=== PATIENT | female | born 1950 | race Caucasian/White ===

== ENCOUNTER → 2019-10-30 14:25 | Outpatient (CLI) | payer MEDICARE, OTHER, SELFPAY ==
--- NOTE | 2019-10-30 14:29 | DI.RAD.S_ITS ---
PROCEDURE: XR LUMBAR SPINE MIN 4V INDICATIONS: LBP with Right LE symptoms TECHNIQUE: 5 views of the lumbar spine were acquired. COMPARISON: None. FINDINGS: Bones: 5 nonrib-bearing vertebrae are present. There is normal bony alignment. No vertebral body compression fractures. Degenerative endplate changes throughout lumbar spine is seen. Bilateral facet arthrosis is also. No suspicious bony lesions. Soft tissues: Overlying bowel gas pattern is normal. No suspicious soft tissue calcifications. Oblique images: No pars defects. IMPRESSION: Degenerative disc disease and bilateral facet arthrosis throughout lumbar spine. No acute compression fracture or spondylolisthesis. No gross pars defect. Dictated by: William Forrest M.D. on 10/30/2019 at 16:15 Approved by: William Forrest M.D. on 10/30/2019 at 16:16
== END ==
PROVIDERS: PCP Physician Assistant; Referring Provider Physical Medicine & Rehabilitation; Visit Provider Physical Medicine & Rehabilitation
DX: M54.5 Low back pain (principal); M47.26 Other spondylosis with radiculopathy, lumbar region; M51.16 Intervertebral disc disorders with radiculopathy, lumbar region
CPT/HCPCS: 72110

== ENCOUNTER → 2019-11-23 12:34 | Outpatient (CLI) | payer MEDICARE, OTHER, SELFPAY ==
--- NOTE | 2019-11-23 12:36 | DI.MRI.S_ITS ---
PROCEDURE: MR LUMBAR SPINE WO CON INDICATIONS: Right L4 radiculopathy TECHNIQUE: Noncontrast sagittal T1 spin echo and T2 fast echo, sagittal STIR, axial T1 and T2 fast spin echo through the lumbar spine. In cases with scoliosis, additional coronal T2 fast spin echo may be performed. COMPARISON: [facility], CR, XR LUMBAR SPINE MIN 4V, 10/30/2019, 14:21. FINDINGS: Image quality: Excellent. Alignment and Curvature: There is there is trace retrolisthesis of L1 on L2. Bone Marrow: Marrow is of normal overall signal. Multilevel minimal reactive endplate changes are noted. No acute vertebral body compression fractures. Spinal Cord: Conus medullaris terminates at the L2-3 level. Visualized cord demonstrates normal signal and size. Paraspinous Soft Tissues: No paravertebral masses. Discs: Multilevel [id number] desiccation is present throughout the lumbar spine. L1-L2: Minimal to mild disc bulge without spinal stenosis or foraminal narrowing. L2-L3: Mild disc bulge without spinal stenosis. Minimal left foraminal narrowing. Minimal epidural lipomatosis. Facet and ligamentum flavum hypertrophy are present. L3-L4: Mild disc bulge without spinal stenosis. Minimal left foraminal narrowing with facet and ligamentum flavum hypertrophy. Minimal epidural lipomatosis. L4-L5: Mild disc bulge including a right lateral component. There is mild spinal stenosis. Moderate right and [id number]-[id number] left foraminal narrowing with facet and ligamentum flavum hypertrophy. L5-S1: Mild disc bulge without spinal stenosis. Minimal left foraminal narrowing with facet hypertrophy. IMPRESSION: 1. Multilevel disc bulges. 2. Mild spinal stenosis secondary to disc bulging contributing affective facet/ligamentum flavum arthropathy at L4-5. 3. Multilevel foraminal narrowing most notable at L4-5 secondary to facet arthropathy. Dictated by: Lucia Crisostomo M.D. on 11/23/2019 at 15:57 Approved by: Lucia Crisostomo M.D. on 11/23/2019 at 16:02
== END ==
PROVIDERS: PCP Physician Assistant; Referring Provider Physical Medicine & Rehabilitation; Visit Provider Physical Medicine & Rehabilitation
DX: M51.16 Intervertebral disc disorders with radiculopathy, lumbar region (principal); M51.17 Intervertebral disc disorders with radiculopathy, lumbosacral region; M47.26 Other spondylosis with radiculopathy, lumbar region; M48.061 Spinal stenosis, lumbar region without neurogenic claudication
CPT/HCPCS: 72148

== ENCOUNTER 2022-10-20 09:17 | Outpatient (CLI) | payer MEDICARE, OTHER, SELFPAY ==
[2022-10-20] VITALS (8 sets, daily range): BP systolic 114–145; BP diastolic 56–67; PULSE 60–70; RESP 17–20; O2SAT 96–100
--- NOTE | 2022-10-20 09:18 | DI.RAD.S_ITS ---
PROCEDURE: PAIN L INTERLAMINAR/CAUDAL INJ INDICATIONS: SPONDYLOSIS COMPARISON: None. FINDINGS: Fluoroscopic spot filming was performed to verify placement of spinal needles at the L4-5 level(s), as labeled on the films. Appropriate location(s) of the needle tip(s) was confirmed by injection of iodinated contrast. IMPRESSION: Intraprocedural fluoroscopy was provided for guidance and anatomical localization. Please see the procedure report for further details. Dictated by: Abdullahi Becker M.D. on 10/20/2022 at 16:16 Approved by: Abdullahi Becker M.D. on 10/20/2022 at 16:16
[2022-10-20] MEDS: MIDAZOLAM 2 MG/2 ML VIAL IV (11:12)
[2022-10-20] MEDS: DEXAMETHASONE 10 MG/ML VIAL 20 MG INJ (11:17)
[2022-10-20] MEDS: IOPAMIDOL 15 ML VIAL 3 ML INJ (11:17)
[2022-10-20] MEDS: BUPIVACAINE 0.25% (PF) VIAL 2 ML INJ (11:17)
[2022-10-20] MEDS: BETAMETHASONE 30 MG/5 ML MDV 6 MG INJ (11:18)
--- NOTE | 2022-10-20 11:31 | P.PCN_ITS ---
Date/Time/Diagnoses Date of procedure: 10/20/22 Time of procedure: 11:31 Pre-procedure diagnosis: 1. HNP WITH RADICULAR FEATURES, 2. MULTILEVEL CENTRAL STENOSIS, Post-procedure diagnosis: same Procedure Notes Procedure: 1. FLUOROSCOPICALLY GUIDED CONTRAST CONTROLLED INTERLAMINAR EPIDURAL STEROID INJECTION -L4/5 Indications: Elizabeth is referred by DM Green for treatment of Bilateral Foraminal Stenosis R>L LE symptoms. Physician: Edson Comer Total Fluoroscopy time (seconds): 7 Total sedation minutes: 10 Complications: none Procedure in detail & Post-procedure care: FINDINGS Multilevel Central Spinal Stenosis with Nerve Root Compression DESCRIPTION OF PROCEDURE Fluoroscopically guided, contrast-controlled L4/5 translaminar epidural steroid injection. Following review of allergy and review of potential side effects and complications, including, but not necessarily limited to, infection, allergic reaction, local tissue breakdown, temporary as well as permanent nerve injury, paralysis, stroke and possible , the patient indicated that the patient understood and agreed to proceed. An informed consent document was signed by the patient, witnessed by a nurse, and placed in the patient's chart. Additionally, other treatment options including modalities, medications, and physical therapy were reviewed with the patient. After review of previous anaesthesic history and IV conscious sedation the patient was deemed safe to proceed with today?s procedure with IV conscious sedation as ASA class II designation. Safety time-out was performed to confirm patient ID, procedure to be performed and site of procedure. IV sedation was accomplished with a combination of 2mg of Versed was administered by the RN after DO order, titrated to patient comfort during the course of the procedure while the patient remained responsive to all verbal commands In the prone position, following sterile prep and drape of the lumbar region, the L4/5 translaminar space was identified fluoroscopically. The skin was anesthetized via a 25-gauge, 1.5inch needle with 1% lidocaine solution. At this point, a 22-gauge short bevel spinal needle was atraumatically introduced and advanced under fluoroscopic guidance into the region of the L4/5 translaminar space. Depth was confirmed on lateral view. Radiological data, including multiple fluoroscopic views of the lumbar spine, reveal a spinal needle at the L4/5 translaminar space. Lateral views then show placement of the needle in the epidural space. Subsequent views show contrast material flowing superiorly and inferiorly in the epidural space. No vascular or intrathecal uptake is observed. At this point, using loss of resistance technique with saline and air, the epidural space was entered. This was confirmed following negative aspiration with injection of approximately 1.5cc of Isovue 200, showing excellent epidural flow without vascular or intrathecal uptake. At this point, 1cc of 1% lidocaine solution combined with 3cc or 20mg of dexamethasone and 6mg betamethasone was injected without incident. The patient tolerated the procedure well without signs or symptoms of complications prior to transfer to the recovery area continued monitoring without incident. The patient was then transferred to the recovery area where they were observed for an appropriate period of time after the injection. The patient reported a VAS score of 7 prior to the procedure and a post- procedure VAS of 1. POST OP INSTRUCTIONS The patient was provided a Pain Log to continue to record their response to the target-specific procedure prior to follow-up visit with their referring physician. Additionally, specific post-injection care instructions and a contact number to our office were provided if concerns arise regarding possible complications associated with the procedure are suspected.
== END 2022-10-20 11:47 | disposition home or self-care (01) ==
LOC: RAD 09:18
PROVIDERS: PCP Physician Assistant; Referring Provider Physical Medicine & Rehabilitation; Visit Provider Physical Medicine & Rehabilitation
DX: M51.16 Intervertebral disc disorders with radiculopathy, lumbar region (principal); M48.061 Spinal stenosis, lumbar region without neurogenic claudication
CPT/HCPCS: 62323; 99152; J0702; J1100; J2250; J3490

== ENCOUNTER 2023-01-05 12:29 | Outpatient (CLI) | payer MEDICARE, OTHER, SELFPAY ==
[2023-01-05] VITALS (9 sets, daily range): BP systolic 130–179; BP diastolic 56–73; PULSE 60–74; RESP 12–22; TEMP 36.1; O2SAT 97–100
--- NOTE | 2023-01-05 12:30 | DI.RAD.S_ITS ---
PROCEDURE: PAIN L/S FACET INJ/BLK 1ST RIC COMPARISON: None. INDICATIONS: SPONDYLOSIS FINDINGS: Access needle tips at the bilateral L4, L5 and S1 pedicles. Injection of small amount of contrast confirms position in the needle tip and demonstrates in extra thecal location. IMPRESSION: [place] needles at bilateral L4, L5 and S1 pedicles for bilateral L4, L5 and S1 medial branch block. Dictated by: Mary Ann Weinberg MD, PhD on 01/05/2023 at 15:18 Approved by: Mary Ann Weinberg MD, PhD on 01/05/2023 at 15:18
[2023-01-05] MEDS: MIDAZOLAM 2 MG/2 ML VIAL IV (13:57)
[2023-01-05] MEDS: LIDOCAINE 1% 20 ML 5 ML INJ (14:03)
[2023-01-05] MEDS: IOPAMIDOL 15 ML VIAL 3 ML INJ (14:04)
[2023-01-05] MEDS: BUPIVACAINE 0.5% (PF) 10 ML VIAL 5 ML INJ (14:04)
--- NOTE | 2023-01-05 14:14 | PM.PROC.IR.1 ---
Date/Time/Diagnoses Date of procedure: 01/05/23 Time of procedure: 14:14 Pre-procedure diagnosis: 1. FACET ARTHROPATHY Post-procedure diagnosis: same Procedure Notes Procedure: 1. BILATERAL- L4, L5 and S1 DIAGNOSTIC MB BLOCKS with LA Anesthetic Indications: Elizabeth is referred by DM Green for treatment of Bilateral Axial LBP. Physician: Edson Comer Total Fluoroscopy time (seconds): 9 Total sedation minutes: 14 Complications: none Procedure in detail & Post-procedure care: DESCRIPTION OF PROCEDURE Fluoroscopically guided, contrast-controlled bilateral L4, L5 and S1 medial branch blocks with 0.5cc of 0.5% Marcaine. Following review of allergy and review of potential side effects and complications, including, but not necessarily limited to, infection, allergic reaction, local tissue breakdown, nerve injury, paralysis, stroke and possible , the patient indicated that the patient understood and agreed to proceed. An informed consent document was signed by the patient, witnessed by a nurse, and placed in the patient's chart. After review of previous anaesthesic history and IV conscious sedation the patient was deemed safe to proceed with today's procedure with IV conscious sedation as ASA class II designation. Safety time-out was performed to confirm patient ID, procedure to be performed and site of procedure. IV sedation was accomplished with a combination of 2mg of Versed was administered by the RN after DO order, titrated to patient comfort during the course of the procedure while the patient remained responsive to all verbal commands In the prone position, following sterile prep and drape of the lumbar region, the right L4, L5 and S1 anatomical location of the medial branch of the dorsal ramus was identified fluoroscopically. Subsequently an anesthetic skin wheal using 1% lidocaine solution was initiated at each of the anatomical spots. Subsequently then a 22-gauge 3.5-inch spinal needle was atraumatically introduced and advanced under fluoroscopic guidance at each of the corresponding sites at the right L4, L5 and S1 MB. After negative aspiration, 0.2cc of Isovue 200 was injected, confirming placement without vascular or intrathecal uptake. Subsequently then 0.5cc of 0.5% Marcaine solution was injected at each of the corresponding sites at the right L4, L5 and S1 medial branch locations. The identical procedure was replicated on the left. The patient tolerated the procedure well without signs or symptoms of complications prior to transfer to the recovery area continued monitoring without incident. Post-procedure, the patient was monitored initiating provocative activities to measure the amount of relief from block of the facetogenic pain. The patient reported a VAS of 7 prior to the procedure and a post-procedure VAS of 1. It has been a pleasure to assist in the diagnostic and therapeutic care of your patient. POST OP INSTRUCTIONS The patient was provided with a Pain Log to complete over the next several hours and subsequent days prior to the patient's follow up with the ordering physician. If the patient has community relations police lieutenant relief to the solution applied, then they may be a candidate for medial branch rhizotomy. The patient is aware, was provided, once again, with a Pain Log and will follow up with the referring physician for review and clinical correlation
== END 2023-01-05 14:32 | disposition home or self-care (01) ==
LOC: RAD 12:30
PROVIDERS: PCP Physician Assistant; Referring Provider Physical Medicine & Rehabilitation; Visit Provider Physical Medicine & Rehabilitation
DX: M47.816 Spondylosis without myelopathy or radiculopathy, lumbar region (principal); M47.817 Spondylosis without myelopathy or radiculopathy, lumbosacral region
CPT/HCPCS: 64493; 64494; 99152; J2250